=== PATIENT | male | born 1980 | race Caucasian/White ===

== ENCOUNTER → 2020-07-08 | Outpatient (CLI) | payer OTHER ==
[~2020-07-08] MED LIST: 0.9 % SODIUM CHLORIDE 10 ML DISP.SYRIN. ID ONE; CONTRAST GIVEN. MC PRN; GADOTERATE 5 MMOL/10ML VIAL. INT ART ONE; IOHEXOL 300 MG/ML 50 ML VIAL. INT ART ONE; LIDOCAINE 1% Multi-Dose 20 ML VIAL. ID ONE
--- NOTE | 2020-07-08 16:55 | KCIC ---
EXAM: Left shoulder injection WITH Fluoroscopic guidance DATE: 07/08/2020 2:38 PM CLINICAL HISTORY: Reason: Chronic intermittent shoulder pain, worsening pain, decreased ROM. / Spl. I nstructions: 5mL Lidocaine, 5mL Omni 300,10mL saline,0.1mL clariscan, 8 sec fl, 2 images / History: COMPARISON: None pertinent TECHNIQUE: The patient was informed of the indications and alternatives for this procedure as well as risks and benefits. No immediate contraindication identified. The patient provided informed, written consent. Laterality was confirmed by the entire team following a time out. Following initial left shoulder fluoroscopic localization, a suitable area was sterilely prepped and draped. Local anesthesia was administered with 1% xylocaine. With intermittent fluoroscopic observati on, a 22-gauge spinal needle was advanced into the left shoulder sheath/capsule with confirmation of intra-synovial position with infusion of less than 1 cc iodinated contrast. Subsequent infusion 12 mL of solution containing 10 cc saline, 5 cc lidocaine 1%, 5 cc Isovue and 0.1 cc gadolinium. Hemostasis with local pressure. Local clinical exam negative for immediate complication. Patient informed re local potential signs or symptoms that may indicate need to return to ER/Ordering physician for further evaluation. Patient informed re precautionary measures after intra-synovial in jection of anesthetic.. Patient expressed understanding. Performing Physicians: Dr. Batool Rodriguez Blood Loss: 0 cc Total Fluoroscopy time: 8 seconds Total spot images taken: 0 Number of screen save images: 2 IMPRESSION: Successful intra-synovial injection left shoulder joint with gadolinium contrast pre-MRI, per clinica l request. Electronically signed by: Dustin Rodriguez MD (07/08/2020 4:53 PM) [id number]
--- NOTE | 2020-07-08 20:51 | KCIC ---
EXAM: MRI arthrogram Left shoulder DATE: 07/08/2020 3:15 PM COMPARISON: None INDICATION: Left shoulder pain. Progressing over last 2 weeks. Decreased range of motion. TECHNIQUE: Multiplanar, multisequence MRI arthrogram of the Left shoulder was performed without contr ast. FINDINGS: Iatrogenic distention of the left glenohumeral joint with gadolinium contrast. AC joint is congruent. Trace subacromial-subdeltoid bursal edema likely bursitis. No rotator cuff tear is seen. Rotator cuff muscle signal and bulk is normal without fatty atrophy. Intra-articular and extra-articular long head biceps tendon is intact. There is trace blunting of the posterior labrum with partial contrast extension through the labral ch ondral junction (series 3 image 15). No fracture or osteonecrosis. Articular cartilage is grossly preserved. IMPRESSION: 1. Posterior labral deformity/blunting with short segment fluid extension into the labral chondral j unction on a single slice, suspicious for labral tear. 2. Trace subacromial-subdeltoid bursal edema likely bursitis. Electronically signed by: Dustin Rodriguez MD (07/08/2020 8:49 PM) [facility] [employer] [facility] Laterality
== END | disposition home or self-care (01) ==
LOC: KCIC 14:19
PROVIDERS: ATTEND Family Medicine
DX: M25.512 Pain in left shoulder (principal); Z79.899 Other long term (current) drug therapy; Z91.013 Allergy to seafood
CPT/HCPCS: 23350; 73219; 77002; A9575; J3490; Q9967; 73040